=== PATIENT | male | born 1980 | race Caucasian/White ===

== ENCOUNTER 2019-09-14 09:43 | Emergency (ER) | payer OTHER, SELFPAY ==
[2019-09-14 09:45] VITALS: BP 115/69; PULSE 88; RESP 18; TEMP 37.4; O2SAT 97; BMI 28.0
[2019-09-14 11:00] VITALS: BP 127/83; PULSE 77; O2SAT 98
[2019-09-14 11:24] VITALS: TEMP 37.6
[2019-09-14] MEDS: ACETAMINOPHEN 325 MG TABLET 650 MG PO (11:51)
[2019-09-14 11:52] LABS: Add Manual Diff / Slide Review NO; Basophils Absolute Auto 100 /uL (0-100); Basophils Percent Auto 0.7 % (0-2); Eosinophils Absolute Auto 0 /uL (0-450); Hematocrit 46.1 % (41-53); Hemoglobin 15.7 g/dL (13.5-17.5); Lymphocytes Absolute Auto 1000 /uL (1100-4500); Lymphocytes Percent Auto 10.3 % (25-40); Mean Corpuscular HGB Conc 34.1 % (30-36); Mean Corpuscular Hemoglobin 29.8 PG (26-34); Mean Corpuscular Volume 87.3 fL (80-100); Monocytes Absolute Auto 1500 /uL (0-900); Monocytes Percent Auto 15.5 % (3-14); Neutrophils Absolute Auto 7200 /uL (1500-7000); Neutrophils Percent Auto 73.5 % (50-75); Platelet Count 185 X10^3/uL (150-400); Red Blood Cell Count 5.28 X10^6/uL (4.5-5.9); Red Cell Distribution Width 13.8 % (11.6-14.8); White Blood Cell Count 9.9 X10^3/uL (4.5-11.0)
[2019-09-14] MEDS: KETOROLAC 60 MG/2 ML VIAL 30 MG IM (11:52)
[2019-09-14] MEDS: LIDOCAINE PATCH 1 EACH ADH..PATCH TOP (11:52)
[2019-09-14] MEDS: methocarbamoL 500 MG TABLET PO (12:07)
--- NOTE | 2019-09-14 12:22 | ED.BACK ---
HPI - Back Pain/Injury <JOSÉ Paez - Last Filed: 09/14/19 13:59> General Chief Complaint: Back Pain/Injury Stated Complaint: Rt knee and lower back pain Time Seen by Provider: 09/14/19 10:58 Source: patient Mode of arrival: other (limping gait) Limitations: no limitations History of Present Illness HPI Narrative: This is a 39-year-old male, former smoker, who presents to ED with significant other with chief complain of left knee swelling and discomfort and also right low back pain radiating to his buttock. Patient reports he has history of staph infection on the same knee 12 years ago and had washed out. Since then, patient has osteoarthritis on left knee and has been taking Naprosyn 220 mg once a day. Patient reports he noticed onset of swelling on Monday night and progressively getting worse on . When he got off from work on evening the swelling and pain significantly increased and was evaluated at [facility] Emergency room on night. He states left knee had total 37 mL of yellow fluid drained on that night and had lab test, x-ray test and pending fluid culture from the knee. Patient was discharged to home with few tabs of [place] Varina for pain management and to follow up with his primary care physician and [facility]. Patient states he has been having low-grade of fever and T-max was 99.5? last night and also some chills. Patient states his son recently had flu and he has been exposed to him. Patient denies nausea or vomiting, urinary symptoms, saddle anesthesia, incontinence for stool or urine. Pain increases with weight-bearing and flexing his left knee. Pain improves with resting with his left leg extended. Patient reports pain is constant throb in anterior entire knee. Right lower back pain and tightness worse with certain movements and he has known occasional low back pain in for last several months which became worse. However, patient has been ambulating with limping gait due to left knee pain last a few days. Related Data Previous Rx's Medication Instructions Recorded hydrocodone-acetaminophen [[place] Varina] 1 tab PO BID PRN #10 tab 09/14/19 meloxicam [Mobic] 7.5 mg PO DAILY #14 tab 09/14/19 methocarbamol 500 mg PO .BID prn #14 tab 09/14/19 Allergies Allergy/AdvReac Type Severity Reaction Status Date / Time No Known Drug Allergies Allergy Verified 09/14/19 11:38 Review of Systems <JOSÉ Paez - Last Filed: 09/14/19 13:59> Review of Systems Narrative: General: Denies (+) mild fever, (+) chills, fatigue, malaise, sweats. HEENT: Denies sinus pain, ear pain, sore throat, difficulty swallowing, dizziness. Respiratory: Denies dyspnea, cough, wheezing, hemoptysis, sputum. Cardiovascular: Denies chest pain, palpitations, orthopnea, edema. Gastrointestinal: Denies nausea, vomiting, abdominal pain, diarrhea, constipation, melena. : Denies dysuria, frequency, incontinence, hematuria, urinary retention. Musculoskeletal: See HPI Skin: Denies rash, skin lesions, or other. Neurologic: Denies weakness, headache, numbness, change in speech, confusion, seizures, incoordination. Psychiatric: No concerning psychosocial issues. 12-point review of systems is negative except for those stated above. Patient History <JOSÉ Paez - Last Filed: 09/14/19 13:59> Medical History Back pain (Acute) Bacterial infection of knee joint (Acute) Osteoarthritis of knee (Acute) Social History Smoking Status: Former smoker Smoking Status: Former smoker Exam <JOSÉ Paez - Last Filed: 09/14/19 13:59> Narrative Exam Narrative: General appearance: well developed, well nourished, in no acute distress. Head: normocephalic, atraumatic, no scalp lesions, non-tender. ENT: Hearing grossly intact. Nose without bleeding, purulent discharge or deviation. Mucous membrane dry, no mucosal lesion. Throat without erythema, tonsillar hypertrophy or exudate. Uvula in midline, airway patent. Neck/Thyroid: neck supple, full range of motion, no visible masses or meningeal signs. No JVD, non-tender without lymphadenopathy. Skin: no suspicious rashes, lesions over visible areas. No erythema or warmth noted on anterior knee. Warm and dry and appropriate color for ethnicity. Heart: no clubbing, no cyanosis, no edema. S1 and S2 normal. RRR w/o murmurs, clicks, or bruits. Lungs: Breathing even and unlabored. No stridor. No accessory muscles used. Able to speak in full sentences. Chest: normal shape and expansion. Abdomen: non-obese, non-distended. Neurologic: alert and oriented. Cognitive exam, TUMBLER TENDER and PNS grossly intact on informal exam. Psych: good eye contact, normal affect. Initial Vital Signs Initial Vital Signs: Vital Signs Temperature 99.4 F 09/14/19 09:45 Pulse Rate 88 09/14/19 09:45 Respiratory Rate 18 09/14/19 09:45 Blood Pressure 115/69 09/14/19 09:45 Pulse Oximetry 97 09/14/19 09:45 Extrem Right lower extremity: knee Details: abnormal to inspection, tenderness Location: of the patella, swelling Location: of the patella and of the infrapatellar area, abnormal ROM Details: pain with active ROM during and pain with passive ROM during, knee ligament exam normal and other (No erythema around patella. Bogginess to palpate in inferior patella.); no abrasions, no lacerations, no ecchymosis, no crepitus, no deformity and no unusual warmth and foot Details: normal capillary refill, normal to inspection, vascular exam Details: dorsalis pedis pulse present and normal capillary refill, tendon exam and motor-sensory exam Details: light-touch normal <Subhash Nogueira MD - Last Filed: 09/15/19 23:20> Initial Vital Signs Initial Vital Signs: Vital Signs Temperature 99.4 F 09/14/19 09:45 Pulse Rate 88 09/14/19 09:45 Respiratory Rate 18 09/14/19 09:45 Blood Pressure 115/69 09/14/19 09:45 Pulse Oximetry 97 09/14/19 09:45 Scores <JOSÉ Paez - Last Filed: 09/14/19 13:59> GCS [place] coma scale eye opening: Spontaneous [place] coma scale verbal response: Orientated [place] coma scale motor response: Obey commands [place] coma scale total score: 15 Course <JOSÉ Paez - Last Filed: 09/14/19 13:59> Orders Ordered: Discontinued Medications Acetaminophen (Tylenol) 650 mg PO NOW ONE Stop: 09/14/19 11:19 Last Admin: 09/14/19 11:51 Dose: 650 mg Documented by: STACIE Ketorolac Tromethamine (Toradol) 30 mg IM NOW ONE Stop: 09/14/19 11:19 Last Admin: 09/14/19 11:52 Dose: 30 mg Documented by: STACIE Lidocaine (Lidoderm) 1 each TOP NOW ONE Stop: 09/14/19 11:19 Last Admin: 09/14/19 11:52 Dose: 1 each Documented by: STACIE Methocarbamol (Robaxin) 500 mg PO NOW ONE Stop: 09/14/19 11:19 Last Admin: 09/14/19 12:07 Dose: 500 mg Documented by: STACIE Vital Signs Vital signs: Vital Signs - 8 hr 09/14/19 09:45 09/14/19 11:00 09/14/19 11:24 Temperature 99.4 F 99.7 F H Pulse Rate 88 77 Respiratory Rate 18 Blood Pressure 115/69 Blood Pressure [Left Arm] 127/83 Pulse Oximetry 97 98 09/14/19 12:46 Temperature Pulse Rate 75 Respiratory Rate Blood Pressure Blood Pressure [Left Arm] 135/71 Pulse Oximetry 98 <Subhash Nogueira MD - Last Filed: 09/15/19 23:20> Orders Ordered: Discontinued Medications Acetaminophen (Tylenol) 650 mg PO NOW ONE Stop: 09/14/19 11:19 Last Admin: 09/14/19 11:51 Dose: 650 mg Documented by: STACIE Ketorolac Tromethamine (Toradol) 30 mg IM NOW ONE Stop: 09/14/19 11:19 Last Admin: 09/14/19 11:52 Dose: 30 mg Documented by: STACIE Lidocaine (Lidoderm) 1 each TOP NOW ONE Stop: 09/14/19 11:19 Last Admin: 09/14/19 11:52 Dose: 1 each Documented by: STACIE Methocarbamol (Robaxin) 500 mg PO NOW ONE Stop: 09/14/19 11:19 Last Admin: 09/14/19 12:07 Dose: 500 mg Documented by: STACIE Vital Signs Vital signs: Vital Signs - 8 hr 09/14/19 09:45 09/14/19 11:00 09/14/19 11:24 Temperature 99.4 F 99.7 F H Pulse Rate 88 77 Respiratory Rate 18 Blood Pressure 115/69 Blood Pressure [Left Arm] 127/83 Pulse Oximetry 97 98 09/14/19 12:46 Temperature Pulse Rate 75 Respiratory Rate Blood Pressure Blood Pressure [Left Arm] 135/71 Pulse Oximetry 98 MDM - Back Pain/Injury <Baltazar JOSÉ Win - Last Filed: 09/14/19 13:59> Differential Diagnosis Differential diagnosis: Likely lumbar radiculopathy, strain of lumbar region and other (knee joint effusion, joint infection) Medical Records Attestation: I reviewed the patient's medical records. Lab Data Attestation: I reviewed the patient's lab results. Result diagrams: 09/14/19 11:42 Labs: Lab Results 09/14/19 09/14/19 Range/Units 11:42 12:13 WBC 9.9 (4.5-11.0) X10^3/uL RBC 5.28 (4.5-5.9) X10^6/uL Hgb 15.7 (13.5-17.5) g/dL Hct 46.1 (41-53) % MCV 87.3 (80-100) fL MCH 29.8 (26-34) PG MCHC 34.1 (30-36) % RDW 13.8 (11.6-14.8) % Plt Count 185 (150-400) X10^3/uL Neut % (Auto) 73.5 (50-75) % Lymph % (Auto) 10.3 L (25-40) % [place] % (Auto) 15.5 H (3-14) % Eos % (Auto) 0.0 L (2-4) % Baso % (Auto) 0.7 (0-2) % Neut # (Auto) 7200 H (5769-9427) /uL Lymph # (Auto) 1000 L (9775-7727) /uL [place] # (Auto) 1500 H (0-900) /uL Eos # (Auto) 0 (0-450) /uL Baso # (Auto) 100 (0-100) /uL Influenza A (RT-PCR) Flu a negative (NEGATIVE) Influenza B (RT-PCR) Flu b negative (NEGATIVE) MDM Narrative Medical decision making narrative: X-ray test on left knee was deferred since patient just had this done on night at [facility] with no acute findings except moderate effusion. Knee joint fluid culture is pending. No leukocytosis today. Flu test was obtained since patient was in contact with son who has flu symptoms recently. Flu test was negative today. Afebrile and T-max of 99.7? today with stable vital signs. Patient was medicated for back pain with methocarbamol, Tylenol, Toradol injection and Lidocaine patch which improved his symptoms. We discussed patient to follow-up with his PCP and a referral to orthopedist. Patient provided with knee immobilizer and crutches for ambulation and support on his knee and to prevent excessive flexion and extension. Return precautions were discussed with the patient and patient in agreement with treatment plan. Patient discharged to home with Mobic, [place] Varina, and methocarbamol for pain management. <Subhash Nogueira MD - Last Filed: 09/15/19 23:20> Lab Data Labs: Lab Results 09/14/19 09/14/19 Range/Units 11:42 12:13 WBC 9.9 (4.5-11.0) X10^3/uL RBC 5.28 (4.5-5.9) X10^6/uL Hgb 15.7 (13.5-17.5) g/dL Hct 46.1 (41-53) % MCV 87.3 (80-100) fL MCH 29.8 (26-34) PG MCHC 34.1 (30-36) % RDW 13.8 (11.6-14.8) % Plt Count 185 (150-400) X10^3/uL Neut % (Auto) 73.5 (50-75) % Lymph % (Auto) 10.3 L (25-40) % [place] % (Auto) 15.5 H (3-14) % Eos % (Auto) 0.0 L (2-4) % Baso % (Auto) 0.7 (0-2) % Neut # (Auto) 7200 H (5350-9437) /uL Lymph # (Auto) 1000 L (4905-2512) /uL [place] # (Auto) 1500 H (0-900) /uL Eos # (Auto) 0 (0-450) /uL Baso # (Auto) 100 (0-100) /uL Influenza A (RT-PCR) Flu a negative (NEGATIVE) Influenza B (RT-PCR) Flu b negative (NEGATIVE) Discharge Plan Departure Patient Disposition: Home Clinical Impression: Pain and swelling of left knee, Effusion of bursa of left knee Discharge Date/Time: 09/14/19 13:43 Instructions: DI for Knee Effusion Activity Restrictions/Additional Instructions: You have been diagnosed with [left knee pain and swelling with effusion. Today's WBC count is within normal of 9.9. Since you had x-ray test done a couple of days ago we deferred this imaging test today since you do not have new injuries or trauma to affected knee. Please follow-up with knee effusion fluid culture with Julia Lam.]. What to do: *Take your medications as directed. Please take [id number] Tylenol 650 mg 4 times a day as needed. You can take up to total 4000 mg of Tylenol in 24 hour period as out the out. [place] Varina has 325 of Tylenol mixed in so please add this as well. I have ordered Mobic which is long duration NSAIDS for pain and inflammation. You can take this once a day. Please continue to take your stomach acid medication to avoid getting GI irritation. [place] Varina is narcotic medications he can cause drowsiness, constipation so please take precautions. Do not drive, drink alcohol operate heavy equipments while on this medication. You can use MiraLax or [id number] stool softener to counter act constipation problem. Increase oral hydration and high-fiber diet as well. You can use knee immobilizer and crutches for left knee swelling, inflammation and pain. *Follow up with your primary care provider in 2-3 days, call for an appointment. I have included [facility] contact information. Let them know you were seen in the ED and that we asked you to be seen in follow up. *Return to ED if you have any new, worsening, or concerning symptoms, such as [fever, increasing pain, increasing redness/warmth/swelling around her left knee, chest pain, breathing difficulty, unable to tolerate fluids or any acute concerns]. Prescriptions: New hydrocodone-acetaminophen [[place] Varina] 5-325 mg tablet 1 tab PO BID PRN (Reason: pain) Qty: 10 RF: 0 methocarbamol 500 mg tablet 500 mg PO .BID prn Qty: 14 RF: 0 meloxicam [Mobic] 7.5 mg tablet 7.5 mg PO DAILY Qty: 14 RF: 0 Referrals: [facility] [Provider Group] Niraj Grant [Primary Care Provider] -
[2019-09-14 12:46] VITALS: BP 135/71; PULSE 75; O2SAT 98
[2019-09-14 12:50] LABS: Influenza A - CEPHEID Flu A NEGATIVE (NEGATIVE); Influenza B - CEPHEID Flu B NEGATIVE (NEGATIVE)
== END 2019-09-14 13:43 | disposition home or self-care (01) ==
PROVIDERS: Emergency Provider Nurse Practitioner Family; PCP Student in an Organized Health Care Education/Training Program
DX: M25.562 Pain in left knee (principal); M25.462 Effusion, left knee; M54.5 Low back pain
CPT/HCPCS: 85025; 87502; 96372; 99283; 99284; J1885

== ENCOUNTER 2024-02-21 13:47 | Day surgery (SDC) | payer OTHER, SELFPAY ==
[2024-02-21 14:05] VITALS: BP 118/67; PULSE 76; RESP 14; TEMP 36.6; O2SAT 100
--- NOTE | 2024-02-21 14:09 | P.OP.EGD_ITS ---
Operative Date/Time/Diagnoses Date of procedure: 02/21/24 Pre-op diagnosis: See indications and findings Procedure & Clinicians Study performed: EGD Indications: Severe heartburn Surgeon: Celestine Negrete Procedure Notes Procedure in detail: After informed consent was obtained the patient was placed in left lateral d ecubitus position. The video upper scope was placed into the oropharynx and with the patient's help swallowed into the esophagus. The esophagus stomach and duodenum were carefully examined. On withdrawal retroflexed view the GE junction was performed. The scope was removed. The patient tolerated procedure well. Blood loss none Complications none Sedation mac Findings 1. Normal esophagus to 35 cm where the GE junction was at times wide open 2. 4-5 cm hiatal hernia with no clear Vincent lesions 3. Normal distal stomach 4. Normal duodenal bulb and sweep Follow-up with Mando Lainez as needed.
--- NOTE | 2024-02-21 14:10 | PM.HP.1 ---
History of Present Illness History of Present Illness Date Patient Seen: 02/21/24 Chief complaint: EGD w/poss bx Narrative: Severe heartburn [facility] Medical History (Updated 09/29/19 @ 00:00 by ) Back pain Osteoarthritis of knee Bacterial infection of knee joint Social History Smoking Status: Former smoker Meds Home Medications and Allergies Home Medications Medication Instructions Recorded Confirmed Type bupropion HCl 150 mg 24 hr tablet, 150 mg PO DAILY 02/21/24 02/21/24 History extended release naproxen 220 mg PRN Pain (Scale Score 1-3) 02/21/24 History omeprazole 40 mg capsule,delayed 40 mg PO DAILY 02/21/24 02/21/24 History release Allergies Allergy/AdvReac Type Severity Reaction Status Date / Time No Known Drug Allergies Allergy Verified 09/14/19 11:38 Exam Narrative Exam Narrative: Oropharynx free of lesion Chest clear to auscultation percussion Cardiac exam reveals no S3 or murmur Assessment & Plan Assessment & Plan narrative: 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 Need for upper endoscopy. Risks, benefits, alternatives have been explained. Time-Based Coding :: [TOTAL MINUTES] spent with patient and on the chart (including review of chart, obtaining history, exam, reviewing outside data, placing orders, documenting exam and treatment plan, and counseling patient) on [DATE].
[2024-02-21] MEDS: LACTATED RINGERS 1,000 ML 42 ML IV (14:21)
[2024-02-21 15:17] VITALS: BP 108/76; PULSE 80; RESP 14; TEMP 36.3; O2SAT 96
[2024-02-21 15:22] VITALS: BP 120/87; PULSE 72; RESP 15; O2SAT 96
[2024-02-21 15:27] VITALS: BP 105/82; PULSE 69; RESP 20; O2SAT 98
== END 2024-02-21 15:35 | disposition home or self-care (01) ==
PROVIDERS: PCP Nurse Practitioner Family; Referring Provider Internal Medicine Gastroenterology; Visit Provider Internal Medicine Gastroenterology
PROC: 0DJ08ZZ Inspection of Upper Intestinal Tract, Via Natural or Artificial Opening Endoscopic (ICD-10-PCS; CPT 43235; principal; 2024-02-21 15:00)
DX: R12 Heartburn (principal); K44.9 Diaphragmatic hernia without obstruction or gangrene
CPT/HCPCS: 43235; J2704